=== PATIENT | female | born 1955 | race Caucasian/White ===

== ENCOUNTER → 2024-03-21 | Outpatient (CLI) | payer MEDICARE, SELFPAY ==
--- NOTE | 2024-03-21 10:51 | XR_ITS ---
Examination: Abdomen AP single view Technique: AP portable supine abdomen, single view Exam date and time: March 21, 2024 1053 hours INDICATIONS: Abdominal pain and distention one week. FINDINGS: Moderate air and stool throughout the colon Small bowel ileus left abdomen with air distended small bowel loops No free air IMPRESSION: Mild small bowel ileus
== END | disposition home or self-care (01) ==
LOC: CDIM 10:45
PROVIDERS: PCP Family Medicine; Referring Provider Physician Assistant; Visit Provider Physician Assistant
DX: K56.7 Ileus, unspecified (principal)
CPT/HCPCS: 74018

== ENCOUNTER → 2024-05-30 | Outpatient (CLI) | payer MEDICARE, SELFPAY ==
[2024-05-30 11:16] LABS: Collection Type, Urine Clean Catch; Squamous Epithelial Cell,Urine 0 /hpf (0-5)
[2024-05-30 11:44] LABS: Basophils % (Auto) 1 % (0-2.5); Eosinophils # (Auto) 0.1 Thou/mm3 (0.0-0.5); Eosinophils % (Auto) 2 % (0-10); Hematocrit 41.6 % (36.0-46.0); Immature Granulocytes % (Auto) 0 % (0-0); Immature Granulocytes Auto 0.01 Thou/mm3 (0.00-0.00); Lymphocytes # (Auto) 1.8 Thou/mm3 (1.0-4.8); Lymphocytes % (Auto) 31 % (10-50); Mean Corpuscular HGB Conc 33.7 g/dl (31.0-37.0); Mean Corpuscular Hemoglobin 31.2 pg (25.0-35.0); Mean Corpuscular Volume 93 fL (80-100); Monocytes # (Auto) 0.5 Thou/mm3 (0.0-0.8); Monocytes % (Auto) 8 % (0-12); Neutrophils # (Auto) 3.4 Thou/mm3 (1.8-7.7); Neutrophils % (Auto) 59 % (37-80); Nucleated Red Blood Cell % 0 /100 WBC (0); Platelet Count 243 Thou/mm3 (140-440); RDW Standard Deviation 43.4 fL (36.4-46.3); Red Blood Count 4.49 Miln/mm3 (4.00-5.20); White Blood Count 5.8 Thou/mm3 (3.6-11.0)
[2024-05-30 11:57] LABS: Alanine Aminotransferase 11 U/L (10-49); Albumin, Serum 4.2 gm/dL (3.4-4.8); Albumin/Globulin Ratio 1.8 (1.2-2.2); Alkaline Phosphatase 49 U/L (46-116); Anion Gap 8 (7-16); Aspartate Amino Transferase 20 U/L (0-34); BUN/Creatinine Ratio 26 Ratio (12-20); Bilirubin,Total 0.5 mg/dL (0.3-1.2); Blood Urea Nitrogen 21 mg/dL (9-23); Calcium 9.2 mg/dL (8.3-10.6); Calcium (Corrected) 9.2 mg/dL (8.5-10.1); Carbon Dioxide 28.4 mMol/L (20.0-31.0); Chloride 107 mMol/L (98-107); Cholesterol 222 mg/dL (132-200); Creatinine (Component) 0.8 mg/dL (0.6-1.3); Globulin 2.3 gm/dL (2.3-3.5); Glucose 92 mg/dL (74-106); HDL Cholesterol 73 mg/dL (40-60); LDL Cholesterol,Calculated 133 mg/dL (0-130); Osmolality,Calculated 287 (275-295); Sodium 143 mMol/L (136-145); Total Protein 6.5 gm/dL (5.7-8.2); Triglycerides 82 mg/dL (30-150); eGFR > 60 See Note
[2024-05-30 12:02] LABS: Amorphous Crystals,Urine Present (Absent); Bilirubin,Urine Negative (Negative); Blood,Urine Negative (Negative); Clarity,Urine Turbid (Clear/Hazy); Color,Urine Lt-Yellow (Lt Yel-Yel); Culture Indicated,Urine Not Indicated; Glucose, Urine Negative (Negative); Ketones,Urine Negative (Negative); Leukocyte Esterase,Urine Negative (Negative); Nitrite,Urine Negative (Negative); PH,Urine 7.5 (5.0-7.0); Protein,Urine Negative (Neg - Trace); RBC,Urine < 1 /hpf (0-3); Specific Gravity,Urine 1.014 (1.001-1.035); Urobilinogen,Urine Negative mg/dL (0.0-1.0); WBC,Urine < 1 /hpf (0-5)
== END | disposition home or self-care (01) ==
LOC: COPL 10:21
PROVIDERS: PCP Family Medicine; Referring Provider Nurse Practitioner Family; Visit Provider Nurse Practitioner Family
DX: Z00.00 Encounter for general adult medical examination without abnormal findings (principal); E03.9 Hypothyroidism, unspecified
CPT/HCPCS: 36415; 80053; 80061; 81001; 84443; 85025

== ENCOUNTER → 2024-06-11 | Outpatient (CLI) | payer MEDICARE, SELFPAY ==
--- NOTE | 2024-06-11 10:47 | XR_ITS ---
Examination: Bilateral 6 views TECHNIQUE: AP oblique lateral each wrist total 6 views Exam date and time: June 11, 2024 1143 hours INDICATIONS: Bilateral wrist pain 2 days. FINDINGS: Moderate osteopenia Advanced osteoarthritis left first carpometacarpal joint Mild osteoarthritis right first carpometacarpal joint No erosive arthritis. No fractures. No avascular necrosis IMPRESSION: Advanced osteoarthritis left first carpometacarpal joint, this joint is amenable to steroid injection under fluoroscopic guidance in the radiology department as clinically warranted
--- NOTE | 2024-06-11 10:47 | XR_ITS ---
Examination: Bilateral hands, 6 views. Technique: AP, Oblique, Lateral each hand total 6 views Date and time of exam: June 11, 2024 1116 hours INDICATIONS: Onset bilateral hand pain beginning 2 days ago. FINDINGS: Moderate osteopenia Advanced osteoarthritis left first carpometacarpal joint Mild osteoarthritis right first carpometacarpal joint No erosive arthritis No opaque foreign bodies No fractures Mild osteoarthritis distal interphalangeal joints second through fifth digits and interphalangeal joint first digit as well as bilateral first metacarpophalangeal joints Impression: Osteoarthritis as above, most severe left first carpometacarpal joint
== END | disposition home or self-care (01) ==
LOC: CDIM 10:30
PROVIDERS: PCP Family Medicine; Referring Provider Nurse Practitioner Gerontology; Visit Provider Nurse Practitioner Gerontology
DX: M18.0 Bilateral primary osteoarthritis of first carpometacarpal joints (principal); M19.042 Primary osteoarthritis, left hand; M19.041 Primary osteoarthritis, right hand
CPT/HCPCS: 73110; 73130

== ENCOUNTER → 2024-07-11 | Outpatient (CLI) | payer MEDICARE, SELFPAY | END | disposition home or self-care (01) | LOC: COPL 08:42 | PROVIDERS: PCP Family Medicine; Referring Provider Nurse Practitioner Family; Visit Provider Nurse Practitioner Family | DX: Z28.310 Unvaccinated for COVID-19 (principal) | CPT/HCPCS: 36415; 86735; 86762; 86765 ==

== ENCOUNTER → 2024-07-24 | Outpatient (CLI) | payer MEDICARE, SELFPAY ==
--- NOTE | 2024-07-24 09:41 | XR_ITS ---
Examination: Scoliosis survey 4, views. Technique: Standing AP lateral thoracic, AP lateral lumbar spine Exam date and time: July 24, 2024 0950 hours Findings: Moderate osteopenia Upper thoracic dextroscoliosis 12 degrees Thoracolumbar levoscoliosis 8 degrees Lumbar dextroscoliosis 10 degrees Advanced disc narrowing L4-L5 No thoracic or lumbar fracture IMPRESSION: Scoliosis as above
[2024-07-24 11:52] LABS: Urea Breath Test Negative (Negative)
== END | disposition home or self-care (01) ==
LOC: COPL 09:15
PROVIDERS: PCP Nurse Practitioner Family; Referring Provider Nurse Practitioner Family; Visit Provider Nurse Practitioner Family
DX: M41.86 Other forms of scoliosis, lumbar region (principal); M41.85 Other forms of scoliosis, thoracolumbar region; M41.84 Other forms of scoliosis, thoracic region; R14.1 Gas pain; M54.50 Low back pain, unspecified
CPT/HCPCS: 72082; 83013; 83014

== ENCOUNTER → 2024-08-28 | Outpatient (CLI) | payer MEDICARE, SELFPAY ==
[2024-08-28 14:18] LABS: Basophils # (Auto) 0.1 Thou/mm3 (0.0-0.2); Basophils % (Auto) 1 % (0-2.5); Eosinophils # (Auto) 0.2 Thou/mm3 (0.0-0.5); Eosinophils % (Auto) 2 % (0-10); Hematocrit 39.4 % (36.0-46.0); Hemoglobin 13.3 g/dL (12.0-16.0); Immature Granulocytes Auto 0.02 Thou/mm3 (0.00-0.00); Lymphocytes # (Auto) 1.6 Thou/mm3 (1.0-4.8); Lymphocytes % (Auto) 23 % (10-50); Mean Corpuscular HGB Conc 33.8 g/dl (31.0-37.0); Mean Corpuscular Hemoglobin 31.5 pg (25.0-35.0); Mean Corpuscular Volume 93 fL (80-100); Monocytes # (Auto) 0.6 Thou/mm3 (0.0-0.8); Monocytes % (Auto) 8 % (0-12); Neutrophils # (Auto) 4.5 Thou/mm3 (1.8-7.7); Neutrophils % (Auto) 65 % (37-80); Nucleated Red Blood Cell # 0.00 Thou/mm3 (0.00-0.00); Nucleated Red Blood Cell % 0 /100 WBC (0); Platelet Count 221 Thou/mm3 (140-440); RDW Standard Deviation 42.5 fL (36.4-46.3); Red Blood Count 4.22 Miln/mm3 (4.00-5.20); White Blood Count 6.8 Thou/mm3 (3.6-11.0)
[2024-08-28 14:39] LABS: Alanine Aminotransferase 8 U/L (10-49); Albumin, Serum 4.2 gm/dL (3.4-4.8); Albumin/Globulin Ratio 1.8 (1.2-2.2); Alkaline Phosphatase 47 U/L (46-116); Amylase 70 U/L (30-118); Anion Gap 8 (7-16); Aspartate Amino Transferase 16 U/L (0-34); BUN/Creatinine Ratio 22 Ratio (12-20); Bilirubin,Total 0.3 mg/dL (0.3-1.2); Blood Urea Nitrogen 20 mg/dL (9-23); Calcium 9.6 mg/dL (8.3-10.6); Calcium (Corrected) 9.6 mg/dL (8.5-10.1); Carbon Dioxide 27.5 mMol/L (20.0-31.0); Chloride 106 mMol/L (98-107); Creatinine (Component) 0.9 mg/dL (0.6-1.3); Globulin 2.3 gm/dL (2.3-3.5); Glucose 98 mg/dL (74-106); Lipase 39 U/L (12-53); Osmolality,Calculated 283 (275-295); Potassium 4.0 mMol/L (3.4-5.1); Sodium 141 mMol/L (136-145); Thyroid Stimulating Hormone 3.52 uIU/mL (0.55-4.78); Total Protein 6.5 gm/dL (5.7-8.2); eGFR > 60 See Note
== END | disposition home or self-care (01) ==
LOC: COPL 13:40
PROVIDERS: PCP Family Medicine; Referring Provider Nurse Practitioner Family; Visit Provider Nurse Practitioner Family
DX: R63.6 Underweight (principal); E03.9 Hypothyroidism, unspecified
CPT/HCPCS: 36415; 80053; 82150; 83690; 84443; 85025

== ENCOUNTER → 2024-08-29 | Outpatient (CLI) | payer MEDICARE, SELFPAY ==
--- NOTE | 2024-08-29 | XR_ITS ---
Examination: Abdomen AP single view Technique: AP portable supine abdomen, single view Exam date and time: August 29, 2024 0820 hours INDICATIONS: Generalized abdominal pain beginning one month ago FINDINGS: Moderate stool throughout the colon A few loops of air distended small bowel No free air No abnormal calcific densities IMPRESSION: Mild small bowel ileus
--- NOTE | 2024-08-29 07:43 | XR_ITS ---
Examination: Ultrasound soft tissue extremity left thigh TECHNIQUE: Grayscale sonographic images soft tissue left thigh Date and time: August 29, 2024 0803 hours INDICATIONS: Palpable lump in the left side noticed beginning 3 weeks ago. FINDINGS: No cystic or solid mass IMPRESSION: No cystic or solid mass
--- NOTE | 2024-08-29 07:44 | XR_ITS ---
Examination: Abdomen sonogram, complete Date and time of exam: August 29, 2024 0751 hours INDICATIONS: Right upper abdominal pain beginning 6 weeks ago. Technique: Multiple real-time grayscale transabdominal sonographic images of the abdomen have been obtained. Findings: Normal gallbladder Normal common bile duct 0.3 cm Pancreatic head 1.6 cm Aorta not enlarged. Liver 14.3 cm fatty infiltration Normal hepatopedal portal venous flow Patent IVC Right kidney 9.4 cm cortex 1.1 cm 20 mm upper pole cyst Left kidney 10.8 cm renal cortex 2.0 cm Spleen 7.9 cm IMPRESSION: Normal gallbladder Fatty liver
== END | disposition home or self-care (01) ==
LOC: CDIM 07:31
PROVIDERS: PCP Family Medicine; Referring Provider Nurse Practitioner Family; Visit Provider Nurse Practitioner Family
DX: K56.7 Ileus, unspecified (principal); K76.0 Fatty (change of) liver, not elsewhere classified; R22.42 Localized swelling, mass and lump, left lower limb
CPT/HCPCS: 74018; 76700; 76882

== ENCOUNTER → 2025-01-19 | Outpatient (CLI) | payer MEDICARE, SELFPAY ==
--- NOTE | 2025-01-19 14:38 | XR_ITS ---
Examination: Hand, right 3 views Technique: Hand AP, oblique, lateral 3 views Date and time of exam: January 19, 2025, 1501 hours INDICATION: Right hand pain 3 weeks no trauma. FINDINGS: Moderate juxta articular bone demineralization Moderate osteoarthritis distal interphalangeal joint fifth digit No erosive arthritis No fracture Mild osteoarthritis first carpometacarpal joint Advanced narrowing navicular trapezium joint IMPRESSION: Osteoarthritis as above
== END | disposition home or self-care (01) ==
LOC: CDIM 14:20
PROVIDERS: PCP Family Medicine; Referring Provider Nurse Practitioner Gerontology; Visit Provider Nurse Practitioner Gerontology
DX: M18.11 Unilateral primary osteoarthritis of first carpometacarpal joint, right hand (principal); M19.041 Primary osteoarthritis, right hand
CPT/HCPCS: 73130